=== PATIENT | male | born 1945 | race Caucasian/White ===

== ENCOUNTER → 2016-06-21 | Outpatient (CLI) | payer MEDICARE, BC ==
[~2016-06-21] MED LIST: ATOR20TA65 PO; ATOR40TA21 PO; BISA5TAB6 PO; BISOPROLOL PO; FINA5TAB4 PO; FLUO20CA22 PO; GABA300C16 PO; INDO50SU RC; LISI-327 PO; LISI1TAB8 PO; LISI20TA11 PO; LORA-401 PO; METO100T PO; OMEP20CA16 PO; OXYC-209 PO; PANT40TA4 PO; PERCOCET; TERA10CA42 PO; TERA2CAP3 PO; ZOLP10TA PO
--- NOTE | 2016-06-21 11:16 | RADRPT ---
PROCEDURE: XR AP pelvis and Hip. CLINICAL INDICATION: 71-year-old male with hip pain. TECHNIQUE: AP and frog lateral views of the left hip were performed. COMPARISON: No. FINDINGS: A total left hip arthroplasty is in place. The components are anatomically aligned. There is a bon e on bone appearance between the right femoral head and right acetabulum. The SI joints are normal. There is narrowing of the disk space at the lumbosacral junction. IMPRESSION: 1. Osteoarthritis of the right hip. 2. Status post total left hip arthroplasty. 3. Osteoarthritis at the lumbosacral junction. RPTAT:AAJJ Physician Juju Date Time Electronically viewed and signed by Johan Brown Physician on 06/21/2016 11:15 /
== END | disposition home or self-care (01) ==
LOC: UNMERGE 10:17 → MERGE 10:17 → HKI 10:17
PROVIDERS: ATTEND Orthopaedic Surgery
DX: Z01.818 Encounter for other preprocedural examination (principal); M16.11 Unilateral primary osteoarthritis, right hip; M25.551 Pain in right hip; Z96.642 Presence of left artificial hip joint
CPT/HCPCS: 73502; G0463

== ENCOUNTER 2016-06-29 07:37 | Inpatient (IN) | payer MEDICARE, BC ==
[2016-06-22 15:05] VITALS: BMI 33.5
[2016-06-29] VITALS (27 sets, daily range): BP systolic 137–185; BP diastolic 50–87; PULSE 56–75; RESP 5–30; Ht 185.4 cm; Wt 115.2 kg
[~2016-06-29] VITALS: Ht 185.4 cm; Wt 115.2 kg
[~2016-06-29 07:37] MED LIST changes: -ATOR40TA21 PO; -BISA5TAB6 PO; -FLUO20CA22 PO; -GABA300C16 PO; -LISI-327 PO; -LISI1TAB8 PO; -METO100T PO; -OMEP20CA16 PO; -OXYC-209 PO; -TERA10CA42 PO; -ZOLP10TA PO
[2016-06-29] MEDS ORDERED: BISA5TAB6 PO (08:17)
[2016-06-29] MEDS ORDERED: ROCURONIUM 50 MG INJ ONE (08:19)
[2016-06-29] MEDS ORDERED: PROPOFOL 100 ML ONE (08:19)
[2016-06-29] MEDS ORDERED: MIDAZOLAM 1 MG/ML 2 ML INJ ONE (08:19)
[2016-06-29] MEDS ORDERED: CEFAZOLIN 1 GM INJ ONE (08:19)
[2016-06-29] MEDS ORDERED: NEOSTIGMINE 3 MG/3 ML SYRINGE ONE (08:19)
[2016-06-29] MEDS ORDERED: GLYCOPYRROLATE 1 MG INJ ONE (08:19)
[2016-06-29] MEDS ORDERED: LIDOCAINE 100 MG SYRINGE ONE (08:19)
[2016-06-29] MEDS ORDERED: DEXAMETHASONE 4 MG/ML 1 ML INJ ONE (08:19)
[2016-06-29] MEDS ORDERED: ONDANSETRON 4 MG INJ ONE (08:19)
[2016-06-29] MEDS ORDERED: ETOMIDATE 20 MG INJ ONE (08:19)
[2016-06-29] MEDS ORDERED: FENTAnyl 50 MCG/ML VIAL ONE (08:19)
[2016-06-29] MEDS ORDERED: TERA10CA42 PO (08:19)
[2016-06-29] MEDS ORDERED: LISI1TAB8 PO (08:20)
[2016-06-29] MEDS ORDERED: OXYC-209 PO (08:21)
[2016-06-29] MEDS ORDERED: CELECOXIB 400 MG PO X1 DOSE PO ONE (08:30)
[2016-06-29] MEDS ORDERED: oxyCODONE (CR) 10 MG TAB [oxyCONTIN] X1 DOSE PO ONE (08:30)
[2016-06-29] MEDS ORDERED: PREGABALIN 300 MG PO X1 PO ONE (08:30)
[2016-06-29] MEDS ORDERED: LACTATED RINGER'S 1,000 ML IV SCH (08:30)
[2016-06-29] MEDS ORDERED: CEFAZOLIN 2GM/50 ML (PMX) 50 ML X1 BEFORE INCISION IVPB ONE (08:30)
[2016-06-29] MEDS ORDERED: traMADOL 50 MG TAB X 1 DOSE PO ONE (08:30)
[2016-06-29] MEDS ORDERED: TRANEXAMIC ACID IV ONE (09:00)
[2016-06-29] MEDS ORDERED: SOD CHLORIDE 0.9% IV ONE (09:00)
[2016-06-29] MEDS ORDERED: EXPAREL NOTE (BUPIVICAINE LIPOSOMAL) XX SCH (10:00)
[2016-06-29] MEDS ORDERED: PAIN COCKTAIL-CEFUROXIME IRR ONE ×7 (10:00)
[2016-06-29] MEDS ORDERED: BUPIVACAINE LIPOSOME/PF 266 MG/20 ML VIAL INFIL ONE (10:00)
[2016-06-29] MEDS ORDERED: SOD CHLORIDE 0.9% IVPB ONE ×3 (10:00→19:30)
[2016-06-29] MEDS ORDERED: TRANEXAMIC ACID IVPB ONE ×3 (10:00→19:30)
--- NOTE | 2016-06-29 10:07 | HPN ---
Date/Time of Note Date/Time of Note DATE: 06/29/16 TIME: 10:06 Interval H&P Admission Note Pt. seen H&P reviewed: No system changes No change from H&P on 06/23/16 by EDITH Hinkle MD Jun 29, 2016 10:06
[2016-06-29] MEDS ORDERED: SODIUM CL BACTERIOSTATIC 30 ML INJ ONE (10:30)
[2016-06-29] MEDS ORDERED: POLYMYXIN B 500000 UNIT INJ ONE (10:30)
[2016-06-29] MEDS ORDERED: VANCOMYCIN 1 GM INJ ONE (10:31)
[2016-06-29] MEDS ORDERED: MEPERIDINE 25 MG INJ IV PRN (11:30)
[2016-06-29] MEDS ORDERED: TRIMETHOBENZAMIDE 100 MG/ML VIAL IM PRN (11:30)
[2016-06-29] MEDS ORDERED: hydrALAzine 20 MG INJ IV PRN (11:30)
[2016-06-29] MEDS ORDERED: ONDANSETRON 4 MG INJ IV PRN ×2 (11:30→13:30)
[2016-06-29] MEDS ORDERED: LABETALOL HCL 20MG INJ IV PRN (11:30)
[2016-06-29] MEDS ORDERED: HYDROmorphONE (0.2 MG/ML) 10ML SYG IV PRN ×2 (11:30)
[2016-06-29] MEDS ORDERED: DIPHENHYDRAMINE 50 MG INJ IV PRN (11:30)
[2016-06-29] MEDS ORDERED: FENTAnyl 50 MCG/ML VIAL IV PRN ×3 (11:30)
[2016-06-29] MEDS ORDERED: MIDAZOLAM 1 MG/ML 2 ML INJ IV PRN (11:30)
[2016-06-29] MEDS ORDERED: EPHEDrine SULFATE 50 MG/5 ML SYG IV PRN (11:30)
[2016-06-29] MEDS ORDERED: BACITRACIN 50000 UNITS INJ IRR ONE (11:37)
[2016-06-29] MEDS ORDERED: BACITRACIN/POLYMYXIN 28.35 GM OINT TOP ONE (13:01)
--- NOTE | 2016-06-29 13:27 | OPPN ---
Date/Time of Note Date/Time of Note DATE: 06/29/16 TIME: 13:25 Operative/Procedure Note Dictation # [id number] Pre-Operative Diagnosis Right Hip OA Post-Operative Diagnosis Same Procedure Right Anterior ANICETO Surgeon: EDITH LARIOS MD Orchid Worker: CIERA VITALE PA-C Anesthesiologist: Vaughn Nieto M.D. Findings Severe OA Blood Usage/Administration None Implants/Grafts Depuy ANICETO Estimated blood loss: other Drains Hemovac x 1 Specimens Femoral Head Complications: None Anesthesia type: spinal EDITH LARIOS MD Jun 29, 2016 13:27
[2016-06-29] MEDS ORDERED: oxyCODONE 5 MG TAB PO PRN (13:30)
[2016-06-29] MEDS ORDERED: BISACODYL 10 MG SUPP PR PRN (13:30)
[2016-06-29] MEDS ORDERED: PANTOPRAZOLE (EC) 40 MG TAB PO SCH (13:30)
[2016-06-29] MEDS ORDERED: HYDROmorphONE 1 MG/ML SYG IV PRN (13:30)
[2016-06-29] MEDS ORDERED: DIPHENHYDRAMINE 25 MG CAP PO PRN (13:30)
[2016-06-29] MEDS ORDERED: MAGNESIUM HYDROXIDE 30ML CUP PO PRN (13:30)
[2016-06-29] MEDS ORDERED: ASPIRIN (EC) 325 MG TAB PO ONE ×2 (13:30→13:40)
[2016-06-29] MEDS ORDERED: NA PHOSPHATE/BIPHOS 133 ML ENEMA PR PRN (13:30)
[2016-06-29] MEDS ORDERED: NACL 0.9% 3 ML SYG IV SCH (13:30)
[2016-06-29] MEDS ORDERED: BISACODYL (EC) 5 MG TAB PO PRN (13:30)
--- NOTE | 2016-06-29 13:32 | PN ---
Date/Time of Note Date/Time of Note DATE: 06/29/16 TIME: 13:27 Assessment/Plan Lines/Catheters IV Catheter Type (from Nrsg): Peripheral IV Assessment/Plan Assessment/Plan Stable in PACU, s/p right anterior ANICETO -continue antibiotics -pain meds as needed -ASA/SCDs for DVT prophylaxis -Ativan 1mb BID given history of alcohol misuse (drinks 6 beers per day x 50 yrs) -OOB with PT -check AM labs -monitor drain -d/c oropeza in AM XR of the right hip is pending at this time Subjective 24 Hr Interval Summary Doing well in PACU. Denies pain. Moving surgical extremity. Exam/Review of Systems Vital Signs Vitals Vital Signs Date Time Temp Pulse Resp B/P Pulse Ox O2 Delivery O2 Flow Rate FiO2 06/29/16 09:03 97.9 58 16 185/79 97 Room Air Intake and Output 06/28/16 06/28/16 06/29/16 15:00 23:00 07:00 Intake Total 0 ml Balance 0 ml Exam Free Text/Dictation Hemovac: Dressing dry Incision clean, dry, and intact without redness or drainage 5/5 Quadriceps, Tibialis Anterior, EHL, Gastroc, Soleus, Peroneals Normal sensation Palpable DT/PT, CR <2 sec No distal edema CIERA VITALE PA-C Jun 29, 2016 13:32
[2016-06-29 13:40] LABS: HEMATOCRIT 32.2 % (42.0-52.0); HEMOGLOBIN 10.6 g/dl (14.0-18.0)
[2016-06-29] MEDS: HYDROmorphONE (0.2 MG/ML) 10ML SYG IV PRN ×2 (13:53→14:00)
--- NOTE | 2016-06-29 13:53 | OPR ---
DATE OF OPERATION: 06/29/2016 PREOPERATIVE DIAGNOSIS: Right hip osteoarthritis. POSTOPERATIVE DIAGNOSIS: Right hip osteoarthritis. OPERATION PERFORMED: Right anterior total hip arthroplasty. SURGEON: Edith Alcantara MD CLOTHES IRONER: SHARIF Velasquez COMPONENTS USED: DePuy size 54 mm Gription Roseau cup: 54/36 neutral Altrx polyethylene liner, size 9 standard Actis stem, 36+5 ceramic head. ANESTHESIA: Spinal plus general endotracheal intubation plus periarticular injection. ANESTHESIOLOGIST: Dr. Nieto ESTIMATED BLOOD LOSS: 300 mL. INTRAVENOUS FLUIDS: Crystalloid 2 L. SPECIMENS: Femoral head. DRAINS: Hemovac x1. COMPLICATIONS: None. DISPOSITION: The patient tolerated the procedure well and was taken to the recovery room in stable condition. INDICATIONS: The patient is a 71-year-old gentleman who has had progressive worsening pain in the right hip with radiographic evidence of severe osteoarthritis. He has failed nonsurgical means of treatment to control his pain including activity modifications, pain medications, and ambulatory assist devices. Despite these measures, he has had worsening pain, and I felt he would benefit from a total hip arthroplasty through an anterior approach. I felt the patient would benefit from a total hip arthroplasty through an anterior approach. The risks, benefits, and alternatives of the procedure were explained in detail to the patient. I explained the risks of the surgery to include, but not be limited to: bleeding and possible need for blood transfusion; infection; pain; stiffness; neurovascular injury with possible numbness, weakness, and/or paralysis anywhere from the hip down to the toes; fracture; instability; dislocation; leg length inequality; wear and/or loosening of the prosthesis and possible need for future revision; blood clots; pulmonary embolism; and anesthetic complications such as heart attack, stroke, GI bleed, pneumonia, and/ or . Ample time was allowed for the patient to ask questions, all of which were addressed and answered. The patient understood the risks involved and wished to proceed. Informed consent was signed prior to the procedure. PROCEDURE: The patient's right hip was initialed with a marking pen in the preoperative area to identify the correct operative site. The patient was brought to the operating room and transferred from the [facility] to the [facility] where a spinal anesthetic was administered. The patient was then anesthetized and intubated. A Bell catheter was placed. Both feet were placed into well-padded boots which were then placed into the leg holders of the traction booms. A timeout was performed to confirm that the right side was the correct operative site. The patient was given 2 g of intravenous Ancef within one hour prior to the procedure. The operative hip was prepped and draped in the usual sterile fashion. A 10 cm oblique incision was made over the anterior aspect of the hip and carried down through subcutaneous tissue and fat with sharp dissection. The tensor fascia cony was incised along the length of the wound. The tensor fascia muscle was retracted laterally and the sartorius medially. The anterior circumflex vessels were identified and tied off with 2-0 silk suture and coagulated with the Tissue Link nurse navigator. The rectus femoris was elevated off the anterior capsule and an anterior capsulectomy performed. A femoral neck osteotomy was made and the head removed from the acetabulum. The acetabulum was denuded of cartilage circumferentially, as was the femoral head. Retractors were placed around the acetabulum. The remnants of the labrum and ligamentum teres were excised. I reamed the acetabulum to the medial wall and then went into an anatomic position and increased the reamer size in 2 mm increments until I got a good bite and was down to bleeding subchondral bone. The Roseau cup was opened and impacted into the acetabulum and sat flush circumferentially, getting a good bite. C-arm imaging showed it had about 40 to 45 degrees of abduction and 20 degrees of anteversion. The real liner was opened and impacted into the acetabulum and sat flush circumferentially. Attention was turned towards the femur. The operative leg was carefully lowered to the floor with the leg adducted. The foot was then externally rotated to approximately 110 degrees. A posteromedial release was performed to optimize exposure. The femoral hook was placed underneath the proximal femur and the hydraulic lift was then used to elevate the femur up out of the wound. The cookie cutter osteotome was used to remove the remaining overhanging greater trochanter. The femur was then broached, going up in one size increments until it sat flush with the neck cut and a stable fit was achieved. The trial neck and head were assembled and reduced into the acetabulum. Fluoroscopic imaging showed the components to be in good position and the leg lengths and offsets to be equal. At this point, the trial was dislocated and the trial broach removed. The canal was irrigated and dried. The real stem was opened and impacted into the femur. The trunnion was irrigated and dried, and the real femoral head was impacted onto the trunnion, and reduced into the acetabulum. The soft tissues were infiltrated with a mixture of 150 mg of 0.5% Bupivacaine, 8 mg of Duramorph, 300 mcg of epinephrine, 30 mg of Toradol, 100 mcg of clonidine, 750 mg of cefuroxime and 86 mL of normal saline, followed by an injection of 266 mg of liposomal Bupivacaine. At this point the hip was irrigated with a mixture of betadine/saline and then antibiotic saline with pulsatile lavage. A Hemovac drain was placed in the deep portion of the wound and brought out the anterolateral thigh. There was good hemostasis. The tensor fascia cony was repaired with a running #1 Vicryl. The deep fat layer was irrigated and closed with 2-0 Stratafix and the subcutaneous layer closed with 3 -0 Vicryl and the skin was closed with pito. The drain was secured with 3-0 nylon. The sponge and needle counts were correct at the end of the case. The wound was covered with an occlusive dressing. The patient was awakened, extubated, and taken to the recovery room in stable condition. Dictated By: EDITH VERA/ES Conf#: [id number] DID#: [id number] MTDDanika
[2016-06-29] MEDS: CEFAZOLIN 2 GM/50 ML (PMX) 50 ML IVPB SCH ×2 (14:00→21:29)
[2016-06-29 14:05] LABS: CALCIUM 8.5 mg/dl (8.4-10.2); CREATININE 0.7 mg/dl (0.61-1.24); POTASSIUM 4.9 mmol/L (3.5-5.1)
[2016-06-29] MEDS ORDERED: BACITRACIN 50000 UNITS INJ ONE (15:12)
[2016-06-29] MEDS: LACTATED RINGER'S 1,000 ML IV SCH ×2 (16:05→21:19)
[2016-06-29] MEDS ORDERED: HYDROCHLOROTHIAZIDE 25 MG TAB PO SCH ×2 (16:30)
--- NOTE | 2016-06-29 17:28 | CONS ---
DATE OF ADMISSION: 06/29/2016 DATE OF CONSULTATION: 06/29/2016 TYPE OF CONSULTATION: Postoperative medical. Dr. Alcantara, Thank you very much for allowing me to evaluate this 71-year-old male who just underwent right total hip arthroplasty. HISTORICAL EVENTS: As you well know, this patient has had progressive disabling pain involving his right hip and for this elected to proceed with surgery. Postoperatively, he is comfortable with min imal discomfort, the absence of cough, wheezing, shortness of breath, nausea, vomiting, abdominal or chest pain. PAST MEDICAL HISTORY: Includes 1. Hypertension. 2. Benign prostatic hypertrophy. 3. Anxiety. 4. 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 5. Modest alcohol intake, chronic. 6. Hypertension. 7. Chronic lumbar radiculopathy. 8. History of gastroesophageal reflux disease. MEDICATIONS PRIOR TO ADMISSION: 1. Percocet 10/325 q.i.d. p.r.n. 2. Protonix 40 mg per day. 3. Bisoprolol 10 mg per day. 4. Terazosin 10 mg per day. 5. Lisinopril/hydrochlorothiazide 20/25 mg per day. 6. Fluoxetine 10 mg per day. 7. Lorazepam 1 mg ____ p.r.n. 8. Indomethacin p.r.n. 9. Finasteride 5 mg per day. ALLERGIES: INCLUDE 1. AMLODIPINE. 2. TRAMADOL. PHYSICAL EXAMINATION: GENERAL: [place] male. No acute distress. VITAL SIGNS: BP 122/80, pulse 70, respirations 20, he was afebrile. EYES: Extraocular muscles were full. NOSE, MOUTH AND THROAT: Normal. NECK: Supple. There was no jugular venous distention, thyroid enlargement, adenopathy. Carotids 2 +, no bruits. LUNGS: Clear. HEART: Rhythm regular. No murmur. ABDOMEN: Nontender. Liver and spleen were not palpable. EXTREMITIES: No edema, no calf tenderness. IMPRESSION: 1. Stable postoperatively, left hip replacement. 2. History of hypertension. Medications to be resumed and BP observed. 3. Will follow daily for signs and symptoms of thromboembolic disease despite appropriate deep veno us thrombosis prophylaxis. Dictated By: MARYBEL RAYMUNDO/ES Conf#: [id number] DID#: [id number]
[2016-06-29] MEDS: LISINOPRIL 20 MG TAB PO SCH (17:32)
[2016-06-29] MEDS: traMADol 50 MG TAB PO SCH ×2 (17:35→23:46)
[2016-06-29] MEDS: PANTOPRAZOLE (EC) 40 MG TAB PO SCH (17:35)
[2016-06-29] MEDS ORDERED: CEFAZOLIN 2 GM/50 ML (PMX) 50 ML IVPB SCH (18:00)
[2016-06-29] MEDS: PREGABALIN 25 MG CAP PO SCH (20:09)
[2016-06-29] MEDS: DOCUSATE SODIUM 100 MG CAP PO SCH (20:09)
[2016-06-29] MEDS: ATORVASTATIN 20 MG TAB PO SCH (20:09)
[2016-06-29] MEDS: TERAZOSIN 5 MG CAP PO SCH (20:10)
[2016-06-29] MEDS ORDERED: TERAZOSIN 5 MG CAP PO SCH (21:00)
[2016-06-29] MEDS ORDERED: LORAZEPAM 1 MG TAB PO SCH (21:00)
[2016-06-29] MEDS: LORAZEPAM 1 MG TAB PO PRN (21:38)
[2016-06-29] MEDS: CEPASTAT LOZENGE MT PRN (23:46)
[2016-06-30 00:10] VITALS: BP 162/72; RESP 18
--- NOTE | 2016-06-30 00:44 | RADRPT ---
PROCEDURE: Fluoroscopy services. CLINICAL INDICATION: Right hip pain. TECHNIQUE: Fluoroscopy services during right hip arthroplasty. COMPARISON: 02/29/2012. FINDINGS: Fluoroscopy services during right hip arthroplasty. 15 intraoperative spot films were obtained at in termediate stages during this procedure and demonstrate localization, instrumentation and placement of right hip arthroplasty. 0.5 minutes of fluoroscopy time were employed during this procedure. IMPRESSION: Fluoroscopy services during right hip arthroplasty. RPTAT: UU Physician Tarsha Date Time Electronically viewed and signed by Physician Tarsha on 06/30/2016 00:43 RS/
--- NOTE | 2016-06-30 00:47 | RADRPT ---
PROCEDURE: XR Right Hip. CLINICAL INDICATION: Placement of right hip arthroplasty, now for postoperative film. TECHNIQUE: Single AP view of the right hip COMPARISON: Fluoroscopy services during placement of right hip arthroplasty dated today, earlier i n the day. FINDINGS: New right hip arthroplasty. No evident hardware complication. There is normal mineralization and alignment. No fracture or osseous lesion is identified. There are no significant degenerative changes in the hip. The soft tissues are unremarkable. Post surgical drain in place. IMPRESSION: No evident hardware complication or acute fracture. RPTAT: UU Physician Tarsha Date Time Electronically viewed and signed by Physician Tarsha on 06/30/2016 00:46 RS/
--- NOTE | 2016-06-30 00:53 | RADRPT ---
PROCEDURE: Pelvis x-ray CLINICAL INDICATION: Postoperative for placement of right hip. TECHNIQUE: Single AP view of the pelvis performed. COMPARISON: Fluoroscopy services during placement of right hip dated today, earlier in the day. FINDINGS: Right hip arthroplasty without evident hardware complication. Post surgical drain in place. Normal mineralization, architecture and alignment. No fracture or osseous lesion identified. There are no significant degenerative changes. Unremarkable soft tissues. IMPRESSION: No evident hardware complication or acute fracture. RPTAT: UU Physician Tarsha Date Time Electronically viewed and signed by Physician Tarsha on 06/30/2016 00:53 RS/
[2016-06-30 05:13] VITALS: BP 137/65; PULSE 64; RESP 18
[2016-06-30 05:14] LABS: HEMATOCRIT 30.5 % (42.0-52.0); HEMOGLOBIN 10.2 g/dl (14.0-18.0)
[2016-06-30 05:18] LABS: POTASSIUM 4.2 mmol/L (3.5-5.1)
[2016-06-30 05:19] LABS: MAGNESIUM 1.6 mg/dl (1.7-2.5); PHOSPHORUS 3.9 mg/dl (2.5-4.9)
[2016-06-30 05:21] LABS: CALCIUM 8.8 mg/dl (8.4-10.2); CREATININE 0.64 mg/dl (0.61-1.24)
[2016-06-30] MEDS: CEFAZOLIN 2 GM/50 ML (PMX) 50 ML IVPB SCH (06:00)
[2016-06-30] MEDS: LACTATED RINGER'S 1,000 ML IV SCH ×3 (06:01→21:19)
[2016-06-30] MEDS: PANTOPRAZOLE (EC) 40 MG TAB PO SCH ×2 (06:06→18:39)
[2016-06-30] MEDS: traMADol 50 MG TAB PO SCH ×3 (06:06→18:38)
[2016-06-30 06:25] LABS: ADD UMIC YES; URINE BILIRUBIN (Dip) NEGATIVE (NEGATIVE); URINE BLOOD (Dip) 1+ (NEGATIVE); URINE COLOR LT. YELLOW (YELLOW); URINE GLUCOSE (Dip) NEGATIVE (NEGATIVE); URINE KETONES (Dip) NEGATIVE (NEGATIVE); URINE LEUKOCYTE ESTERASE (Dip) NEGATIVE (NEGATIVE); URINE NITRITE (Dip) NEGATIVE (NEGATIVE); URINE TOTAL PROTEIN (Dip) NEGATIVE (NEGATIVE); URINE UROBILINOGEN (Dip) 0.2 E.U./dL (0.1-1.0)
[2016-06-30 08:20] VITALS: BP 121/54; RESP 20
[2016-06-30] MEDS ORDERED: CALCIUM CARBONATE 500 MG CHEW TAB PO PRN (08:30)
--- NOTE | 2016-06-30 08:37 | CONS ---
Date/Time of Note Date/Time of Note DATE: 06/30/16 TIME: 08:32 Assessment/Plan Assessment/Plan Additional Assessment/Plan 1. Status post right hip arthroplasty, stable. 2. History of coronary artery disease, presently asymptomatic 3 . Hypertension, now controlled, needed Catapres last night for control 4. Chest pain sec to acid-indigestion, tums ordered, received protonix already 5. Low mag, will replete Consultation Date/Type/Reason Admit Date/Time Jun 29, 2016 at 07:37 Initial Consult Date Detailed Summary Respiratory: No cough Cardiovascular: chest pain (midsternal without radiation and no inc with activity "typical" if his usual indigesetion) Gastrointestinal: flatus, No nausea Genitourinary: other (oropeza in place) Exam/Review of Systems Vital Signs Vitals Vital Signs Date Time Temp Pulse Resp B/P Pulse Ox O2 Delivery O2 Flow Rate FiO2 06/30/16 08:20 97.4 58 20 121/54 98 06/29/16 16:30 Room Air Intake and Output 06/29/16 06/29/16 06/30/16 15:00 23:00 07:00 Intake Total 3711.5 ml 530 ml 1700 ml Output Total 750 ml 2160 ml 2540 ml Balance 2961.5 ml -1630 ml -840 ml Exam Neck: No jvd Respiratory: clear to auscultation Cardiovascular: regular rate and rhythm Gastrointestinal: soft, No tender Extremities: No edema (and no calf tend) Results Result Diagram: 06/30/16 0425 06/30/16 0425 Results 24 hrs Laboratory Tests Test 06/29/16 13:30 06/30/16 04:25 06/30/16 05:00 Anion Gap 12 13 Blood Urea Nitrogen 10 9 Calcium Level 8.5 8.8 Carbon Dioxide Level 25 27 Chloride Level 105 101 Creatinine 0.70 0.64 Glucose Level 128 124 Hematocrit 32.2 L 30.5 L Hemoglobin 10.6 L 10.2 L Potassium Level 4.9 4.2 Sodium Level 137 137 Magnesium Level 1.6 L Phosphorus Level 3.9 Urine Bilirubin NEGATIVE Urine Clarity CLEAR Urine Color LT. YELLOW Urine Glucose NEGATIVE Urine Hemoglobin 1+ H Urine Ketones NEGATIVE Urine Leukocyte Esterase NEGATIVE Urine Microscopic RBC 10-25 Urine Microscopic WBC 0-2 Urine Nitrite NEGATIVE Urine Specific [place] 1.015 Urine Total Protein NEGATIVE Urine Urobilinogen 0.2 E.U./dL Urine pH 6.5 Medications Medications Current Medications Miscellaneous Information 1 ea NOTE XX ; Start 06/29/16 at 10:00; Stop 07/02/16 at 09:59 Atorvastatin Calcium (Lipitor) 20 mg QHS PO Last administered on 06/29/16 20:09 ; Admin Dose 20 MG; Start 06/29/16 at 21:00 Bisacodyl (Dulcolax) 10 mg DAILY PRN PO CONSTIPATION; Start 06/29/16 at 13:30 Finasteride (Proscar) 5 mg DAILY PO ; Start 06/30/16 at 09:00 Terazosin HCl 10 mg 10 mg HS PO Last administered on 06/29/16 20:10; Admin Dose 10 MG; Start 06/29/16 at 21:00 Lactated Ringer's (Lr) 1,000 ml @ 125 mls/hr Q8H IV Last administered on 06:01; Admin Dose 125 MLS/HR; Start 06/29/16 at 13:19 Celecoxib (Celebrex) 200 mg DAILY PO ; Start 06/30/16 at 09:00 Tramadol HCl (Ultram) 50 mg Q6 PO Last administered on 06/30/16 06:06; Admin Dose 50 MG; Start 06/29/16 at 18:00; Stop 07/02/16 at 17:59 Oxycodone HCl (Roxicodone) 5 mg Q4H PRN PO PAIN LEVEL 1-3; Start 06/29/16 at 13: 30 Oxycodone HCl (Roxicodone) 10 mg Q4H PRN PO PAIN LEVEL 4-7; Start 06/29/16 at 13 :30 Hydromorphone HCl (Dilaudid) 1 mg Q3H PRN IV PAIN LEVEL 8-10; Start 06/29/16 at 13:30 Ondansetron HCl (Zofran Inj) 4 mg Q6H PRN IV NAUSEA AND/OR VOMITING; Start 06/29 at 13:30 Bisacodyl (Dulcolax Supp) 10 mg Q12H PRN ID CONSTIPATION; Start 06/29/16 at 13: 30 Magnesium Hydroxide (Milk Of Mag) 30 ml BID PRN PO CONSTIPATION; Start 06/29/16 at 13:30 Sodium Biphosphate/ Sodium Phosphate (Fleet Enema) 133 ml DAILY PRN ID CONSTIPATION; Start 06/29/16 at 13:30 Docusate Sodium (Colace) 100 mg BID PO Last administered on 06/29/16 20:09; Admin Dose 100 MG; Start 06/29/16 at 21:00 Diphenhydramine HCl (Benadryl) 25 mg Q6H PRN PO PRURITUS; Start 06/29/16 at 13: 30 Aspirin (Ecotrin) 325 mg BID PO ; Start 06/30/16 at 09:00 Pregabalin (Lyrica) 50 mg BID PO Last administered on 06/29/16 20:09; Admin Dose 50 MG; Start 06/29/16 at 21:00 Pantoprazole (Protonix Tab) 40 mg BID@06,18 PO Last administered on 06/30/16 06 :06; Admin Dose 40 MG; Start 06/29/16 at 18:00 Lorazepam (Ativan) 1 mg BID PRN PO ANXIETY Last administered on 06/29/16 21:38 ; Admin Dose 1 MG; Start 06/29/16 at 21:00 Lisinopril (Zestril) 20 mg DAILY PO Last administered on 06/29/16 17:32; Admin Dose 20 MG; Start 06/29/16 at 16:29 Clonidine (Catapres) 0.1 mg Q6H PO Last administered on 06/30/16 06:07; Admin Dose 0.1 MG; Start 06/29/16 at 18:30 Phenol (Cepastat Lozenge) 1 lozenge Q1H PRN MT SORE THROAT Last administered on 06/29/16 23:46; Admin Dose 1 LOZENGE; Start 06/29/16 at 22:00 Calcium Carbonate 1000 mg 1,000 mg QID PRN PO DISTENSION/GAS/BLOATING; Start at 08:30; Status UNV Magnesium Sulfate/ Sodium Chloride (Magnesium Sulfate/NS) 106 ml @ 35.333 mls/ hr ONCE ONCE IVPB ; Start 06/30/16 at 08:30; Stop 06/30/16 at 11:29; Status UNV MARYBEL GARDNER MD Jun 30, 2016 08:37
--- NOTE | 2016-06-30 08:48 | PN ---
Date/Time of Note Date/Time of Note DATE: 06/30/16 TIME: 08:46 Assessment/Plan Lines/Catheters IV Catheter Type (from Nrsg): Peripheral IV Bell in Place (from Nrsg): Yes Assessment/Plan Assessment/Plan Stable POD #1, s/p right anterior ANICETO -d/c abx -pain meds as needed -ASA/SCDs for DVT prophylaxis -cont ativan 1mg BID for h/o alcohol misuse -OOB with PT -drain removed -check AM labs -d/c planning. Possible d/c home tomorrow Subjective 24 Hr Interval Summary Doing well. No acute overnight events. Denies significant pain. VSS, afebrile. Exam/Review of Systems Vital Signs Vitals Vital Signs Date Time Temp Pulse Resp B/P Pulse Ox O2 Delivery O2 Flow Rate FiO2 06/30/16 08:20 97.4 58 20 121/54 98 06/29/16 16:30 Room Air Intake and Output 06/29/16 06/29/16 06/30/16 15:00 23:00 07:00 Intake Total 3711.5 ml 530 ml 1700 ml Output Total 750 ml 2160 ml 2540 ml Balance 2961.5 ml -1630 ml -840 ml Exam Free Text/Dictation Hemovac:300cc Dressing dry Incision clean, dry, and intact without redness or drainage 5/5 Quadriceps, Tibialis Anterior, EHL, Gastroc, Soleus, Peroneals Normal sensation Palpable DT/PT, CR <2 sec No distal edema Results Result Diagram: 06/30/16 0425 06/30/16 0425 CIERA VITALE PA-C Jun 30, 2016 08:48
[2016-06-30] MEDS: DOCUSATE SODIUM 100 MG CAP PO SCH ×2 (08:54→20:31)
[2016-06-30] MEDS: FINASTERIDE 5 MG TAB PO SCH (08:55)
[2016-06-30] MEDS: CELECOXIB 200 MG CAP PO SCH (08:55)
[2016-06-30] MEDS: ASPIRIN (EC) 325 MG TAB PO SCH ×2 (08:55→20:31)
[2016-06-30] MEDS: PREGABALIN 25 MG CAP PO SCH ×2 (08:55→20:31)
[2016-06-30] MEDS: LISINOPRIL 20 MG TAB PO SCH (08:56)
[2016-06-30] MEDS ORDERED: HYDROCHLOROTHIAZIDE 25 MG TAB PO SCH (09:00)
[2016-06-30] MEDS ORDERED: LISINOPRIL 20 MG TAB PO SCH (09:00)
[2016-06-30] MEDS ORDERED: NON-FORMULARY/PATIENT OWN MED (Lisinopril/Hydrochlorothiazide (Lisinopril-Hctz 20-25 mg Ta PO SCH (09:00)
[2016-06-30] MEDS ORDERED: MAGNESIUM SULFATE 3 GM in SOD CHLORIDE 0.9% 100 ML IVPB SCH (10:00)
[2016-06-30] MEDS: oxyCODONE 5 MG TAB PO PRN ×3 (10:01→22:35)
[2016-06-30] MEDS: CEPASTAT LOZENGE MT PRN ×2 (11:42→20:32)
[2016-06-30 20:20] VITALS: BP 128/61; PULSE 60; RESP 18
[2016-06-30] MEDS: TERAZOSIN 5 MG CAP PO SCH (20:31)
[2016-06-30] MEDS: ATORVASTATIN 20 MG TAB PO SCH (20:32)
[2016-06-30] MEDS: LORAZEPAM 1 MG TAB PO PRN (22:14)
[2016-07-01] MEDS: traMADol 50 MG TAB PO SCH ×4 (00:10→17:49)
[2016-07-01] MEDS: PANTOPRAZOLE (EC) 40 MG TAB PO SCH ×2 (05:09→17:48)
[2016-07-01] MEDS: oxyCODONE 5 MG TAB PO PRN ×4 (05:09→20:39)
[2016-07-01] MEDS: LACTATED RINGER'S 1,000 ML IV SCH ×3 (05:19→21:19)
[2016-07-01 07:40] VITALS: BP 140/61; RESP 18
[2016-07-01] MEDS: CELECOXIB 200 MG CAP PO SCH (08:36)
[2016-07-01] MEDS: DOCUSATE SODIUM 100 MG CAP PO SCH ×2 (08:36→21:00)
[2016-07-01] MEDS: FINASTERIDE 5 MG TAB PO SCH (08:36)
[2016-07-01] MEDS: PREGABALIN 25 MG CAP PO SCH ×2 (08:36→20:32)
[2016-07-01] MEDS: ASPIRIN (EC) 325 MG TAB PO SCH ×2 (08:36→20:31)
[2016-07-01] MEDS: LISINOPRIL 20 MG TAB PO SCH (08:38)
--- NOTE | 2016-07-01 10:56 | PN ---
Date/Time of Note Date/Time of Note DATE: 07/01/16 TIME: 10:55 Assessment/Plan Lines/Catheters IV Catheter Type (from Nrsg): Saline Lock Bell in Place (from Nrsg): Yes Assessment/Plan Assessment/Plan Stable POD #2, s/p right anterior ANICETO -pain meds as needed -ASA/SCDs for DVT prophylaxis -OOB with PT -dressing changed -check AM labs -plan to d/c home tomorrow Subjective 24 Hr Interval Summary Doing well. No acute overnight events. Mild pain after PT but otherwise denies pain. VSS, afebrile. Would like to go home tomorrow. Exam/Review of Systems Vital Signs Vitals Vital Signs Date Time Temp Pulse Resp B/P Pulse Ox O2 Delivery O2 Flow Rate FiO2 07/01/16 07:40 98.0 65 18 140/61 96 06/29/16 16:30 Room Air Intake and Output 06/30/16 06/30/16 07/01/16 15:00 23:00 07:00 Intake Total 106 ml 600 ml 550 ml Output Total 1200 ml Balance 106 ml 600 ml -650 ml Exam Free Text/Dictation Dressing dry Incision clean, dry, and intact without redness or drainage 5/5 Quadriceps, Tibialis Anterior, EHL, Gastroc, Soleus, Peroneals Normal sensation Palpable DT/PT, CR <2 sec No distal edema Results Result Diagram: 06/30/16 0425 06/30/16 0425 CIERA VITALE PA-C Jul 01, 2016 10:56
[2016-07-01 11:40] LABS: HEMATOCRIT 32.4 % (42.0-52.0); HEMOGLOBIN 10.5 g/dl (14.0-18.0)
--- NOTE | 2016-07-01 11:46 | CONS ---
Date/Time of Note Date/Time of Note DATE: 07/01/16 TIME: 11:43 Assessment/Plan Assessment/Plan Additional Assessment/Plan 1. Doing well post op right hip replacement. 2. GERD, controlled 3. BP acceptable 4. Labs pending Consultation Date/Type/Reason Admit Date/Time Jun 29, 2016 at 07:37 Detailed Summary Respiratory: No cough, No shortness of breath Cardiovascular: chest pain, No orthopenea, No palpitations Gastrointestinal: other (mild epig and substernal discomfort relieved with tums. doesnt inc with exertion and does not radiate) Genitourinary: no complaints Musculoskeletal: bone/joint pain (midl right hip pain) Exam/Review of Systems Vital Signs Vitals Vital Signs Date Time Temp Pulse Resp B/P Pulse Ox O2 Delivery O2 Flow Rate FiO2 07/01/16 07:40 98.0 65 18 140/61 96 06/29/16 16:30 Room Air Intake and Output 06/30/16 06/30/16 07/01/16 15:00 23:00 07:00 Intake Total 106 ml 600 ml 550 ml Output Total 1200 ml Balance 106 ml 600 ml -650 ml Exam Neck: No jvd Respiratory: clear to auscultation Cardiovascular: regular rate and rhythm Gastrointestinal: soft, No hepatomegaly, No splenomegaly Extremities: No edema (and no calf tend) Results Result Diagram: 07/01/16 1129 06/30/16 0425 Results 24 hrs Laboratory Tests Test 07/01/16 11:29 Hematocrit 32.4 L Hemoglobin 10.5 L Medications Medications Current Medications Miscellaneous Information 1 ea NOTE XX ; Start 06/29/16 at 10:00; Stop 07/02/16 at 09:59 Atorvastatin Calcium (Lipitor) 20 mg QHS PO Last administered on 06/30/16 20:32 ; Admin Dose 20 MG; Start 06/29/16 at 21:00 Bisacodyl (Dulcolax) 10 mg DAILY PRN PO CONSTIPATION; Start 06/29/16 at 13:30 Finasteride (Proscar) 5 mg DAILY PO Last administered on 07/01/16 08:36; Admin Dose 5 MG; Start 06/30/16 at 09:00 Terazosin HCl 10 mg 10 mg HS PO Last administered on 06/30/16 20:31; Admin Dose 10 MG; Start 06/29/16 at 21:00 Lactated Ringer's (Lr) 1,000 ml @ 125 mls/hr Q8H IV Last administered on 06:01; Admin Dose 125 MLS/HR; Start 06/29/16 at 13:19 Celecoxib (Celebrex) 200 mg DAILY PO Last administered on 07/01/16 08:36; Admin Dose 200 MG; Start 06/30/16 at 09:00 Tramadol HCl (Ultram) 50 mg Q6 PO Last administered on 07/01/16 06:56; Admin Dose 50 MG; Start 06/29/16 at 18:00; Stop 07/02/16 at 17:59 Oxycodone HCl (Roxicodone) 5 mg Q4H PRN PO PAIN LEVEL 1-3; Start 06/29/16 at 13: 30 Oxycodone HCl (Roxicodone) 10 mg Q4H PRN PO PAIN LEVEL 4-7 Last administered on 07/01/16 08:57; Admin Dose 10 MG; Start 06/29/16 at 13:30 Hydromorphone HCl (Dilaudid) 1 mg Q3H PRN IV PAIN LEVEL 8-10 Last administered on 06/30/16 17:05; Admin Dose 1 MG; Start 06/29/16 at 13:30 Ondansetron HCl (Zofran Inj) 4 mg Q6H PRN IV NAUSEA AND/OR VOMITING; Start 06/29 at 13:30 Bisacodyl (Dulcolax Supp) 10 mg Q12H PRN [place] CONSTIPATION; Start 06/29/16 at 13: 30 Magnesium Hydroxide (Milk Of Mag) 30 ml BID PRN PO CONSTIPATION; Start 06/29/16 at 13:30 Sodium Biphosphate/ Sodium Phosphate (Fleet Enema) 133 ml DAILY PRN AR CONSTIPATION; Start 06/29/16 at 13:30 Docusate Sodium (Colace) 100 mg BID PO Last administered on 07/01/16 08:36; Admin Dose 100 MG; Start 06/29/16 at 21:00 Diphenhydramine HCl (Benadryl) 25 mg Q6H PRN PO PRURITUS; Start 06/29/16 at 13: 30 Aspirin (Ecotrin) 325 mg BID PO Last administered on 07/01/16 08:36; Admin Dose 325 MG; Start 06/30/16 at 09:00 Pregabalin (Lyrica) 50 mg BID PO Last administered on 07/01/16 08:36; Admin Dose 50 MG; Start 06/29/16 at 21:00 Pantoprazole (Protonix Tab) 40 mg BID@06,18 PO Last administered on 07/01/16 05 :09; Admin Dose 40 MG; Start 06/29/16 at 18:00 Lorazepam (Ativan) 1 mg BID PRN PO ANXIETY Last administered on 06/30/16 22:14 ; Admin Dose 1 MG; Start 06/29/16 at 21:00 Lisinopril (Zestril) 20 mg DAILY PO Last administered on 07/01/16 08:38; Admin Dose 20 MG; Start 06/29/16 at 16:29 Phenol (Cepastat Lozenge) 1 lozenge Q1H PRN MT SORE THROAT Last administered on 06/30/16 20:32; Admin Dose 1 LOZENGE; Start 06/29/16 at 22:00 Calcium Carbonate (Tums) 1,000 mg QID PRN PO DISTENSION/GAS/BLOATING Last administered on 06/30/16 08:55; Admin Dose 1,000 MG; Start 06/30/16 at 08:30 Clonidine (Catapres) 0.1 mg TID PO Last administered on 07/01/16 08:40; Admin Dose 0.1 MG; Start 06/30/16 at 09:00 MARYBEL GARDNER MD Jul 01, 2016 11:46
[2016-07-01 11:50] LABS: POTASSIUM 3.7 mmol/L (3.5-5.1)
[2016-07-01 11:52] LABS: CREATININE 0.85 mg/dl (0.61-1.24)
[2016-07-01 11:53] LABS: PHOSPHORUS 3.2 mg/dl (2.5-4.9)
[2016-07-01 11:53] LABS: CALCIUM 8.7 mg/dl (8.4-10.2)
[2016-07-01 11:54] LABS: MAGNESIUM 1.9 mg/dl (1.7-2.5)
[2016-07-01 12:32] VITALS: BP 153/69; PULSE 68; RESP 18
[2016-07-01 19:46] VITALS: BP 116/60; RESP 18
[2016-07-01] MEDS: ATORVASTATIN 20 MG TAB PO SCH (20:31)
[2016-07-01] MEDS: TERAZOSIN 5 MG CAP PO SCH (20:33)
[2016-07-01] MEDS: LORAZEPAM 1 MG TAB PO PRN (20:39)
[2016-07-01] MEDS: CEPASTAT LOZENGE MT PRN (20:43)
[2016-07-02] MEDS: traMADol 50 MG TAB PO SCH ×3 (00:32→12:19)
[2016-07-02] MEDS: oxyCODONE 5 MG TAB PO PRN ×2 (04:37→09:43)
[2016-07-02] MEDS: LACTATED RINGER'S 1,000 ML IV SCH (05:19)
[2016-07-02] MEDS: PANTOPRAZOLE (EC) 40 MG TAB PO SCH (06:46)
[2016-07-02 07:00] VITALS: BP 152/70; RESP 20
--- NOTE | 2016-07-02 07:21 | PDOCDIS ---
Discharge Instructions DIAGNOSIS Discharge Diagnosis: s/p right anterior ANICETO CONDITION Patient Condition: Good HOME CARE INSTRUCTIONS: Diet Instructions: RegularSpecial Diet: REGULAR ACTIVITY: Activity Restrictions: Slowly Increase Activity Rest between Activity Avoid heavy lifting Do not operate Machinery Do not operate Power Tool Avoid Heavy Housework Keep Limb Elevated Bathing Restrictions: Shower FOLLOW UP/APPOINTMENTS Appointments follow up in the office on 07/02/16 OTHER ORDERS: Other Orders: S/P Anterior ANICETO Physical Therapy: Three times per week at home x 2 weeks Daily in Rehab/SNF WB STATUS: WBAT Strengthening exercises for both upper and un-operated lower extremities. 1. Gait training with front wheeled walker 2. Wide base gait, no pivot turns. 3. Abductor strengthening. 4. Quadriceps and hamstring strengthening. 5. May switch to cane in contra lateral hand 6 weeks after surgery. 6. Physical Therapy can open case if nursing is not available. 7. Ice Packs while at rest to surgical wound for 20 minutes, 3 times/day. 8. Patient requires mobile SCDs to reduce risk of developing DVT following ANICETO. Patient will use the mobile SCDs for 30 days postoperatively. Hip Precautions: No posterior hip precautions. Bathing assistance by home health aide twice weekly if Medicare patient. Occupational Therapy: Evaluation for assistive devices and ADL training. Wound Care: Keep incision dry & covered with Tegaderm until first visit with Dr. Alcantara Anticoagulation Orders: Enteric Coated Aspirin 325 mg po bid x 6 weeks from date of surgery Follow-up:Call for an appointment with Dr. Alcantara in 1 week after discharged from hospital at DME Orders: HECTOR, 3-in-1 Commode, Mobile SCDs CIERA VITALE PA-C Jul 02, 2016 07:21
[2016-07-02] MEDS ORDERED: HYDR-906 PO (07:22)
[2016-07-02] MEDS ORDERED: TRAM50TA2 PO (07:22)
[2016-07-02] MEDS ORDERED: ASPI325T32 PO (07:22)
[2016-07-02 07:56] LABS: HEMATOCRIT 29.5 % (42.0-52.0); HEMOGLOBIN 9.7 g/dl (14.0-18.0)
[2016-07-02 08:06] LABS: POTASSIUM 4.1 mmol/L (3.5-5.1)
[2016-07-02 08:09] LABS: CALCIUM 8.4 mg/dl (8.4-10.2); CREATININE 0.75 mg/dl (0.61-1.24)
--- NOTE | 2016-07-02 08:26 | CONS ---
Date/Time of Note Date/Time of Note DATE: 07/02/16 TIME: 08:25 Assessment/Plan Assessment/Plan Additional Assessment/Plan 1. Doing very well post op left hip replacement. 2. GERD is quiescent. 3. Can dc if ok with ortho and PT Consultation Date/Type/Reason Admit Date/Time Jun 29, 2016 at 07:37 Detailed Summary Respiratory: No shortness of breath Cardiovascular: No chest pain Gastrointestinal: no complaints Genitourinary: no complaints Musculoskeletal: bone/joint pain (mild left hip pain) Exam/Review of Systems Vital Signs Vitals Vital Signs Date Time Temp Pulse Resp B/P Pulse Ox O2 Delivery O2 Flow Rate FiO2 07/02/16 07:00 99.2 76 20 152/70 95 07/01/16 12:32 Room Air Intake and Output 07/01/16 07/01/16 07/02/16 15:00 23:00 07:00 Intake Total 2260 ml 1050 ml Output Total 500 ml 850 ml Balance 1760 ml 200 ml Exam Neck: No jvd Respiratory: clear to auscultation Cardiovascular: regular rate and rhythm Gastrointestinal: soft Extremities: No edema (and no calf tend) Results Result Diagram: 07/02/16 0708 07/01/16 1124 Results 24 hrs Laboratory Tests Test 07/01/16 11:24 07/01/16 11:29 07/02/16 07:08 Anion Gap 13 Blood Urea Nitrogen 11 Calcium Level 8.7 Carbon Dioxide Level 30 Chloride Level 100 Creatinine 0.85 Glucose Level 101 Potassium Level 3.7 Sodium Level 139 Hematocrit 32.4 L 29.5 L Hemoglobin 10.5 L 9.7 L Magnesium Level 1.9 Phosphorus Level 3.2 Medications Medications Current Medications Miscellaneous Information 1 ea NOTE XX ; Start 06/29/16 at 10:00; Stop 07/02/16 at 09:59 Atorvastatin Calcium (Lipitor) 20 mg QHS PO Last administered on 07/01/16 20:31 ; Admin Dose 20 MG; Start 06/29/16 at 21:00 Bisacodyl (Dulcolax) 10 mg DAILY PRN PO CONSTIPATION; Start 06/29/16 at 13:30 Finasteride (Proscar) 5 mg DAILY PO Last administered on 07/01/16 08:36; Admin Dose 5 MG; Start 06/30/16 at 09:00 Terazosin HCl 10 mg 10 mg HS PO Last administered on 07/01/16 20:33; Admin Dose 10 MG; Start 06/29/16 at 21:00 Lactated Ringer's (Lr) 1,000 ml @ 125 mls/hr Q8H IV Last administered on 06:01; Admin Dose 125 MLS/HR; Start 06/29/16 at 13:19 Celecoxib (Celebrex) 200 mg DAILY PO Last administered on 07/01/16 08:36; Admin Dose 200 MG; Start 06/30/16 at 09:00 Tramadol HCl (Ultram) 50 mg Q6 PO Last administered on 07/02/16 06:45; Admin Dose 50 MG; Start 06/29/16 at 18:00; Stop 07/02/16 at 17:59 Oxycodone HCl (Roxicodone) 5 mg Q4H PRN PO PAIN LEVEL 1-3; Start 06/29/16 at 13: 30 Oxycodone HCl (Roxicodone) 10 mg Q4H PRN PO PAIN LEVEL 4-7 Last administered on 07/02/16 04:37; Admin Dose 10 MG; Start 06/29/16 at 13:30 Hydromorphone HCl (Dilaudid) 1 mg Q3H PRN IV PAIN LEVEL 8-10 Last administered on 06/30/16 17:05; Admin Dose 1 MG; Start 06/29/16 at 13:30 Ondansetron HCl (Zofran Inj) 4 mg Q6H PRN IV NAUSEA AND/OR VOMITING; Start 06/29 at 13:30 Bisacodyl (Dulcolax Supp) 10 mg Q12H PRN [place] CONSTIPATION; Start 06/29/16 at 13: 30 Magnesium Hydroxide (Milk Of Mag) 30 ml BID PRN PO CONSTIPATION Last administered on 07/01/16 13:36; Admin Dose 30 ML; Start 06/29/16 at 13:30 Sodium Biphosphate/ Sodium Phosphate (Fleet Enema) 133 ml DAILY PRN ID CONSTIPATION; Start 06/29/16 at 13:30 Docusate Sodium (Colace) 100 mg BID PO Last administered on 07/01/16 08:36; Admin Dose 100 MG; Start 06/29/16 at 21:00 Diphenhydramine HCl (Benadryl) 25 mg Q6H PRN PO PRURITUS Last administered on 20:38; Admin Dose 25 MG; Start 06/29/16 at 13:30 Aspirin (Ecotrin) 325 mg BID PO Last administered on 07/01/16 20:31; Admin Dose 325 MG; Start 06/30/16 at 09:00 Pregabalin (Lyrica) 50 mg BID PO Last administered on 07/01/16 20:32; Admin Dose 50 MG; Start 06/29/16 at 21:00 Pantoprazole (Protonix Tab) 40 mg BID@,18 PO Last administered on 07/02/16 06:46; Admin Dose 40 MG; Start 06/29/16 at 18:00 Lorazepam (Ativan) 1 mg BID PRN PO ANXIETY Last administered on 07/01/16 20:39 ; Admin Dose 1 MG; Start 06/29/16 at 21:00 Lisinopril (Zestril) 20 mg DAILY PO Last administered on 07/01/16 08:38; Admin Dose 20 MG; Start 06/29/16 at 16:29 Phenol (Cepastat Lozenge) 1 lozenge Q1H PRN MT SORE THROAT Last administered on 07/01/16 20:43; Admin Dose 5 LOZENGE; Start 06/29/16 at 22:00 Calcium Carbonate (Tums) 1,000 mg QID PRN PO DISTENSION/GAS/BLOATING Last administered on 06/30/16 08:55; Admin Dose 1,000 MG; Start 06/30/16 at 08:30 Clonidine (Catapres) 0.1 mg TID PO Last administered on 07/01/16 12:31; Admin Dose 0.1 MG; Start 06/30/16 at 09:00 MARYBEL GARDNER MD Jul 02, 2016 08:26
--- NOTE | 2016-07-02 08:46 | PN ---
Date/Time of Note Date/Time of Note DATE: 07/02/16 TIME: 08:43 Assessment/Plan Lines/Catheters IV Catheter Type (from Nrsg): Saline Lock Bell in Place (from Nrsg): Yes Assessment/Plan Assessment/Plan Stable POD #3, s/p right anterior ANICETO -pain meds as needed -OOB with PT -discussed at length to avoid alcohol use while taking narcotic pain medication -dressing changed -d/c home today -follow up in the office in 1 week Subjective 24 Hr Interval Summary Doing well. No acute overnight events. Progressing with PT. Pain better controlled. VSS, afebrile. Will plan to go home today. Exam/Review of Systems Vital Signs Vitals Vital Signs Date Time Temp Pulse Resp B/P Pulse Ox O2 Delivery O2 Flow Rate FiO2 07/02/16 07:00 99.2 76 20 152/70 95 07/01/16 12:32 Room Air Intake and Output 07/01/16 07/01/16 07/02/16 15:00 23:00 07:00 Intake Total 2260 ml 1050 ml Output Total 500 ml 850 ml Balance 1760 ml 200 ml Exam Free Text/Dictation Dressing dry Incision clean, dry, and intact without redness or drainage 5/5 Quadriceps, Tibialis Anterior, EHL, Gastroc, Soleus, Peroneals Normal sensation Palpable DT/PT, CR <2 sec No distal edema Results Result Diagram: 07/02/16 0708 07/02/16 07 CIERA VITALE PA-C Jul 02, 2016 08:46
[2016-07-02] MEDS: ASPIRIN (EC) 325 MG TAB PO SCH (08:53)
[2016-07-02] MEDS: PREGABALIN 25 MG CAP PO SCH (08:54)
[2016-07-02] MEDS: LISINOPRIL 20 MG TAB PO SCH (08:54)
[2016-07-02] MEDS: CELECOXIB 200 MG CAP PO SCH (08:54)
[2016-07-02] MEDS: DOCUSATE SODIUM 100 MG CAP PO SCH (08:54)
[2016-07-02] MEDS: FINASTERIDE 5 MG TAB PO SCH (08:54)
--- NOTE | 2016-07-02 14:19 | DS ---
DATE OF ADMISSION: 06/29/2016 DATE OF DISCHARGE: 07/02/2016 CONDITION ON DISCHARGE: Stable. ADMITTING DIAGNOSIS: Right hip osteoarthritis. DISCHARGE DIAGNOSIS: Status post right anterior total hip arthroplasty. PROCEDURE PERFORMED: Right anterior total hip arthroplasty. HOSPITAL COURSE: This is a 71-year-old male who was seen in clinic initially complaining of right hip pain. He had previously undergone joint replacement of his left hip as well as bilateral knees, and x-rays demonstrated advanced osteoarthritis of the right hip. On 06/29/2016, the patient was admitted and taken to the operating room where he underwent a right anterior total hip arthroplasty. There were no intraoperative complications. The patient tolerated the procedure well. He was taken to the recovery room in stable condition. Pain was well controlled with oral pain medication. He was started on aspirin and SCDs for DVT prophylaxis. He remained hemodynamically stable and neurovascularly intact throughout his hospital stay. He began physical therapy on postoperative day 1 and was deemed stable for discharge on postoperative day 3. Prior to discharge, the incision was inspected and noted to be clean, dry and intact. Dressing changes were done prior to patient going home. LABORATORY ANALYSIS: Hemoglobin 9.7, hematocrit 29.5, chemistry panel was within normal limits. DISCHARGE MEDICATIONS: 1. [place] 5/325 mg. 2. Tramadol 50 mg. 3. Aspirin 325 mg. 3. Additionally, the patient is to resume all his normal home medications. DISCHARGE INSTRUCTIONS: The patient will be discharged home in stable condition. He is to resume a normal diet. Activity includes weightbearing as tolerated on the right lower extremity. He will be in physical therapy with Home Health. He will be discharged home with the medications noted above. The patient has a history of alcohol misuse and was encouraged to avoid drinking alcohol or taking narcotic pain medication. He is to call the office or go to the emergency room for any concerns, including increased redness, swelling, drainage, fever or any concern regarding the operation or site of incision. FOLLOWUP: The patient is to follow up in the office on 07/09/2016. Dictated By: CIERA OLGUIN for EDITH CHOWDHURY/NTS Conf#: [id number] DID#: [id number] CC: EDITH LARIOS MD;*EndCC* MTDD
== END 2016-07-02 13:20 | disposition home health service (06) | DRG 470 ==
LOC: REC 07:37 → MS1 14:07
PROVIDERS: ADMIT Orthopaedic Surgery; ATTEND Orthopaedic Surgery
PROC: 0SR904A Replacement of Right Hip Joint with Ceramic on Polyethylene Synthetic Substitute, Uncemented, Open Approach (ICD-10-PCS; principal; 2016-06-29 10:00)
DX: M16.11 Unilateral primary osteoarthritis, right hip (principal); I10 Essential (primary) hypertension; I25.10 Atherosclerotic heart disease of native coronary artery without angina pectoris; N40.0 Benign prostatic hyperplasia without lower urinary tract symptoms; Z96.653 Presence of artificial knee joint, bilateral; K21.9 Gastro-esophageal reflux disease without esophagitis; F41.9 Anxiety disorder, unspecified; M54.16 Radiculopathy, lumbar region; F17.210 Nicotine dependence, cigarettes, uncomplicated; Z79.82 Long term (current) use of aspirin
CPT/HCPCS: 72170; 73500; 73530; 80048; 81001; 81003; 83735; 84100; 85014; 85018; 86850; 86900; 86901; 86920; 87081; 87086; 88304; 88311; 97110; 97116; 97162; 97166; 97530; Z7610; C1776; C9290; J0171; J0690; J0697; J0735; J1100; J1170; J1885; J2001; J2250; J2274; J2405; J2710; J3010; J3370; J3475; J7120

== ENCOUNTER → 2016-07-09 | Outpatient (CLI) | payer MEDICARE, BC ==
[~2016-07-09] MED LIST changes: +ASPI325T32 PO; +BISA5TAB6 PO; -BISOPROLOL PO; +HYDR-906 PO; -INDO50SU RC; +LISI1TAB8 PO; -LISI20TA11 PO; -PERCOCET; +TERA10CA42 PO; -TERA2CAP3 PO; +TRAM50TA2 PO
--- NOTE | 2016-07-09 10:07 | HKNOTE ---
DATE OF SERVICE: 07/09/2016 INTERVAL HISTORY: The patient presents today for his first postoperative evaluation on his right hip. He is 10 days status post right anterior total hip arthroplasty. He is doing excellent overall. He is ambulating with ease and does not need a cane or other assistive device. He denies any pain and states he stopped all of his pain medication. He denies any fevers or chills, denies any swelling. He is very happy and satisfied with the surgery thus far. He presents today for his first postoperative evaluation. PHYSICAL EXAMINATION: On exam today, he is alert and oriented x4, and in no acute distress. He is ambulating without any assistive devices. Examining the incision, demonstrates it to be clean, dry and intact. There is no erythema or warmth. There is no swelling. He has no pain with gentle internal and external rotation of the hip. Compartments are soft. Homans sign is negative. He is neurovascularly intact distally. IMAGING: X-rays of the right hip were obtained today and reviewed by me. They demonstrate good anatomic alignment of the prosthesis, with no evidence of fracture or dislocation identified. ASSESSMENT: Ten days status post right anterior total hip arthroplasty, doing well. PLAN: The pito were removed today and Steri-Strips were applied. The patient understands that he is to continue taking aspirin twice daily for 6 weeks for DVT prophylaxis. The patient has already begun driving and is able to resume as long as he is not consuming any alcoholic beverages or narcotic pain medication. This was discussed with the patient today, who demonstrates understanding. He will continue with home health, physical therapy if needed. We will see him back in 4 weeks for a repeat evaluation. Dictated By: CIERA OLGUIN for EDITH CHOWDHURY/ES Conf#: [id number] DID#: [id number] GINNY
--- NOTE | 2016-07-09 11:00 | RADRPT ---
PROCEDURE: XR pelvis/right hip. CLINICAL INDICATION: Hip pain TECHNIQUE: AP pelvis/lateral right hip view available for review. COMPARISON: 06/29/2016 FINDINGS: There are bilateral total hip replacements. There is normal mineralization, architecture and alignment. There is no evidence of loosening of th e prosthesis. No fractures, dislocation or osseous lesions are identified. The joints are unremark able. There are normal soft tissues. Skin pito lateral to the right hip. IMPRESSION: Bilateral total hip replacements. Otherwise unremarkable examination. RPTAT: HGDB .Ezekiel Ochoa MD, MD Date Time Electronically viewed and signed by .Ezekiel Ochoa MD, MD on 07/09/2016 10:59 .B/
== END | disposition home or self-care (01) ==
LOC: HKI 09:10 → MERGE 09:30 → UNMERGE 09:30
PROVIDERS: ATTEND Orthopaedic Surgery
DX: Z47.1 Aftercare following joint replacement surgery (principal); Z96.641 Presence of right artificial hip joint
CPT/HCPCS: 73502

== ENCOUNTER → 2016-08-20 | Outpatient (CLI) | payer MEDICARE, BC ==
--- NOTE | 2016-08-20 19:36 | RADRPT ---
PROCEDURE: XR LEFT HIP. CLINICAL INDICATION: Postop. TECHNIQUE: 3 views of the left hip were performed. COMPARISON: 07/09/2016 FINDINGS: There has been no significant change. Patient is status post total hip replacement on the left and bipolar hemiarthroplasty on the right. No evidence for hardware subluxation. No evidence for hardw are fracture. No evidence for osseous fracture. There is a lucency about the acetabular component on the right side which may be a preexisting geode from arthrosis. IMPRESSION: 1. No change in right hemiarthroplasty. 2. No evidence for hardware migration or fracture. RPTAT: XX .Tanner Medrano MD, MD Date Time Electronically viewed and signed by .Tanner Medrano MD, on 08/20/2016 19:36 .T/
== END | disposition home or self-care (01) ==
LOC: HKI 09:03
PROVIDERS: ATTEND Orthopaedic Surgery
DX: Z47.1 Aftercare following joint replacement surgery (principal); M16.11 Unilateral primary osteoarthritis, right hip; Z96.641 Presence of right artificial hip joint; I10 Essential (primary) hypertension
CPT/HCPCS: 73502

== ENCOUNTER 2017-04-13 07:40 | Emergency (ER) | payer MEDICARE, BC ==
[~2017-04-13] VITALS: Ht 182.9 cm; Wt 112.5 kg
[2017-04-13 07:43] VITALS: Ht 182.9 cm; Wt 112.5 kg
--- NOTE | 2017-04-13 08:38 | ERD ---
ER Documentation Chief Complaint Chief Complaint feels something stuck in throat HPI Patient is a 71-year-old male with a history of hypertension who presents ED for concerns of a foreign body sensation in his throat. Patient states he ate nava chops for dinner last night. Patient reports eating dinner at 8 PM. Patient states since that time he has had a foreign body sensation in his throat. Patient denies any gagging, choking, coughing, nausea, vomiting, chest pain, difficulty breathing, stridor or loss of consciousness. Patient denies possibility of bone ingestion. Patient states that he is unable to swallow water or eat after this. Patient admits to history of needing endoscopy to remove food impaction many years ago. Patient denies smoking. ROS All systems reviewed and are negative except as per history of present illness. Medications Home Meds Active Scripts Hydrocodone/Acetaminophen ([place] 5-325 Tablet) 1 Each Tablet, 1 EACH PO Q6 Y for PAIN, #60 TAB Prov:CIERA VITALE PA-C 07/02/16 Tramadol HCl (Tramadol HCl) 50 Mg Tablet, 50 MG PO Q6 for 30 Days, #60 TAB Prov:CIERA VITALE PA-C 07/02/16 Aspirin (Aspir-Thalia) 325 Mg Tablet.dr, 325 MG PO BID for 42 Days, #84 Prov:CIERA VITALE PA-C 07/02/16 Reported Medications Lisinopril/Hydrochlorothiazide (Lisinopril-Hctz 20-25 mg Tab) 1 Each Tablet, 1 EACH PO DAILY, TAB 06/29/16 Terazosin Hcl* (Terazosin Hcl*) 10 Mg Capsule, 10 MG PO HS, CAP 06/29/16 Bisacodyl* (Bisacodyl*) 5 Mg Tablet., 10 MG PO DAILY Y for CONSTIPATION, TAB 06/29/16 Pantoprazole* (Pantoprazole*) 40 Mg Tablet.dr, 40 MG PO DAILY, TAB 06/22/16 Finasteride* (Finasteride*) 5 Mg Tablet, 5 MG PO DAILY, TAB 06/22/16 Atorvastatin Calcium (Atorvastatin Calcium) 20 Mg Tablet, 20 MG PO QHS, #30 TAB 06/22/16 Lorazepam* (Ativan*) 1 Mg Tablet, 1 MG PO TID Y 02/29/12 Allergies Allergies: Coded Allergies: No Known Drug Allergy (Verified Allergy, Unknown, 04/13/17) PMhx/Soc History of Surgery: Yes (OZ KNEES, LEFT HIP,BACK SURGERY,HERNIA) Anesthesia Reaction: No Hx Neurological Disorder: No Hx Respiratory Disorders: No Hx Cardiac Disorders: Yes (HTN) Hx Psychiatric Problems: No Hx Miscellaneous Medical Probl: Yes (HTN, BPH, anxiety, B knee, L THR, L/S radiculopathy GERD) Hx Alcohol Use: No Hx Substance Use: No Hx Tobacco Use: No Smoking Status: Never smoker Physical Exam Vitals Vital Signs Date Time Temp Pulse Resp B/P Pulse Ox O2 Delivery O2 Flow Rate FiO2 04/13/17 12:51 98.1 76 18 152/71 99 Room Air 04/13/17 07:43 99.2 82 18 160/78 99 Physical Exam GENERAL: Well-developed, well-nourished male. Appears in no acute distress. Speaking in full sentences. HEAD: Normocephalic, atraumatic. EYES: Pupils are equally reactive bilaterally. EOMs grossly intact. No conjunctival erythema. ENT: Moist mucous membranes. No uvula deviation. No kissing tonsils. Oropharynx is open. No drooling. No gagging. NECK: Supple. No meningismus. Normal range of motion of the neck. LUNG: Clear to auscultation bilaterally. No rhonchi, wheezing, rales or coarse breath sounds. No nasal flaring. No tripoding. No abdominal retractions. HEART: Regular rate and rhythm. No murmurs, rubs or gallops. EXTREMITIES: Equal pulses bilaterally. No peripheral clubbing, cyanosis or edema. No unilateral leg swelling. NEUROLOGIC: Alert and oriented. Moving all four extremities without any difficulty. Normal speech. Steady gait. SKIN: Normal color. Warm and dry. No rashes or lesions. Result Diagram: 04/13/17 1020 04/13/17 1020 Results 24 hrs Laboratory Tests Test 04/13/17 10:20 White Blood Count 10.310^3/ul Red Blood Count 4.3310^6/ul Hemoglobin 13.4g/dl Hematocrit 39.6% Mean Corpuscular Volume 91.5fl Mean Corpuscular Hemoglobin 30.9pg Mean Corpuscular Hemoglobin Concent 33.8g/dl Red Cell Distribution Width 12.5% Platelet Count 88792^3/UL Mean Platelet Volume 10.2fl Neutrophils % 83.3% Lymphocytes % 9.6% Monocytes % 6.2% Eosinophils % 0.1% Basophils % 0.5% Nucleated Red Blood Cells % 0.0/100WBC Neutrophils # 8.610^3/ul Lymphocytes # 1.010^3/ul Monocytes # 0.610^3/ul Eosinophils # 0.010^3/ul Basophils # 0.110^3/ul Nucleated Red Blood Cells # 0.010^3/ul Sodium Level 143mmol/L Potassium Level 3.9mmol/L Chloride Level 104mmol/L Carbon Dioxide Level 25mmol/L Anion Gap 18 Blood Urea Nitrogen 10mg/dl Creatinine 0.84mg/dl Glucose Level 130mg/dl Calcium Level 9.8mg/dl Current Medications Medications (Trade) Dose Ordered Sig/Roseanna Route PRN Reason Start Time Stop Time Status Last Admin Dose Admin IV Flush 10 ml 10 ml STK-MED ONCE .ROUTE 04/13/17 11:19 04/13/17 11:20 DC 04/13/17 11:30 Sodium Chloride (NS) 100 ml @ ud STK-MED ONCE .ROUTE 04/13/17 11:19 04/13/17 11:20 DC 04/13/17 11:31 Iohexol (Omnipaque 300mg/ ml) 150 ml STK-MED ONCE .ROUTE 04/13/17 11:19 04/13/17 11:20 DC 04/13/17 11:32 Miscellaneous Medication (Gi Cocktail (2)) 40 ml ONCE ONCE PO 04/13/17 12:00 04/13/17 12:01 DC 04/13/17 12:27 Procedures/MDM ED COURSE: The patient was stable throughout ED course. I kept the patient and/or family informed of laboratory and diagnostic imaging results throughout the ED course. DIAGNOSTIC IMAGING: Read by radiologist. Patient: LILY CATHERINE : 1945 Age: 71 Sex: M MR #: [id number] DOS: 04/13/17 0816 Ordering MD: ADRI ANNA PA-C Location: [facility] Room/Bed: PROCEDURE: Neck soft tissues. CLINICAL INDICATION: 5 body sensation.. TECHNIQUE: AP and lateral views of the neck soft tissues. COMPARISON: None. FINDINGS: The prevertebral soft tissues are normal. The nasal pharyngeal, oral pharyngeal , and hypopharyngeal airways are patent. Normal appearance of the visualized trachea. No radiopaque foreign bodies are identified. Degenerative disc space narrowing at C3-C4 and C5-C6 with degenerative endplate spurring and enthesopathy. There are no abnormal calcifications. IMPRESSION: 1. Normal soft tissue neck. No radiopaque foreign body. RPTAT:AAJJ Physician Brittnee Date Time Electronically viewed and signed by Physician Brittnee on 04/13/2017 10:01 SHAGUFTA/ CC: ADRI ANNA PA-C DIAGNOSTIC IMAGING REPORT Patient: LILY CATHERINE : 1945 Age: 71 Sex: M MR #: [id number] DOS: 04/13/17 0818 Ordering MD: ADRI ANNA PA-C Location: [facility] Room/Bed: PROCEDURE: XR Chest. CLINICAL INDICATION: Shortness of breath TECHNIQUE: PA and lateral of the chest was obtained COMPARISON: No priors for comparison FINDINGS: The trachea is midline. The cardiac silhouette and pulmonary vascularity are within normal limits. The lungs are clear. The costophrenic angles are sharp. IMPRESSION: 1. No evidence of acute cardiopulmonary disease. RPTAT: AAPP Physician Letty Date Time Electronically viewed and signed by Physician Letty on 04/13/2017 09:51 JL/ CC: ADRI ANNA PA-C Patient: LILY CATHERINE : 1945 Age: 71 Sex: M MR #: [id number] DOS: 04/13/17 1016 Ordering MD: ADRI ANNA PA-C Location: [facility] Room/Bed: PROCEDURE: CT soft tissue neck with contrast CLINICAL INDICATION: Foreign body sensation/food impaction TECHNIQUE: A CT of the soft tissues of the neck with contrast was performed on a multidetector CT scanner, with multiplanar reformats. 85 cc Omnipaque-300 intravenous contrast were administered. One or more of the following dose reduction techniques were used: Automated exposure control, adjustment in mA and / or kV according to patient size, use of iterative reconstructive technique. CTDI vol = 10 mGy and DLP = 309 mGy-cm. DICOM images are available. COMPARISON: Soft tissue neck radiographs 04/13/2017 FINDINGS: No foreign body, mass lesion, enlarged lymph node meeting size criteria, soft tissue swelling/inflammatory changes or focal fluid collection are identified throughout the soft tissues of the neck. The pharynx, and larynx are unremarkable. The thyroid gland and rest of visceral space structures are unremarkable. The parapharyngeal and retropharyngeal spaces are clear. Carotid atherosclerotic calcifications are noted. The parotid and submandibular glands are unremarkable. The imaged tile designer spaces are symmetric. The imaged skull base appears intact. The perivertebral and posterior cervical spaces are unremarkable. Imaged orbital structures are intact. The oral cavity is partially obscured by artifacts from dental work, without abnormality seen. Mild left sphenoid sinus mucosal thickening is seen. Cervical spondylosis is noted. IMPRESSION: No foreign body, mass/lymphadenopathy or acute abnormality identified throughout the soft tissues of the neck. RPTAT: VV .Camron Beckham MD, MD Date Time Electronically viewed and signed by .Camron Beckham MD, MD on 04/13/2017 11:55 .O/ CC: ADRI ANNA PA-C MEDICATIONS GIVEN: GI cocktail Patient tolerated medication well with no adverse reactions. MEDICAL DECISION MAKING: Patient is a 71-year-old male who presents to the ED for concerns of a foreign body sensation in his throat which started last night. Patient states that he ate nava chops for dinner. Patient denies ingestion of any bones. Patient denies any drooling, gagging, choking or vomiting. Patient is speaking in full sentences. Vital signs were reviewed. Patient is afebrile. Patient was not hypoxic. Patient was hemodynamically stable. Initially soft tissue x-ray of the neck as well as chest x-ray was obtained. Both studies were unremarkable. Patient was given water to drink however he stated he was unable to tolerate it. Patient was noted to have a slight increase in sputum production. I discussed case with my supervising physician Dr. Torres, who then advised me to order a CT neck with contrast. Blood work was obtained prior to ordering CT study. CBC showed no evidence of systemic infection or severe anemia. BMP showed no evidence of electrolyte abnormalities, severe acidosis, alkalosis, renal failure. CT of the neck showed no foreign body, mass, lymphadenopathy or acute abnormality identified throughout the soft tissues of the neck. Patient continued to report sensation in his throat. Patient was given a GI cocktail. After drinking GI cocktail patient was able to tolerate a full cup of water. Patient did not have any episodes of gagging, choking or vomiting. Patient reports significant improvement in symptoms after receiving GI cocktail. At this time the patient's presentation is most consistent with globulus sensation. It is possible that patient may have esophageal abrasion which is contributing to symptoms he has given that he did report significant improvement after receiving a GI cocktail. I explained to the patient he should follow-up with GI specialist on an outpatient basis for an endoscopy. Unable to rule out any esophageal pathologies at this time. Low suspicion for retained foreign body, airway obstruction, esophageal perforation, acute respiratory distress or acute respiratory compromise. Patient was speaking in full sentences throughout the ED course. Patient was also examined by Dr. Torres who agreed patient was stable for outpatient management. DISCHARGE: At this time, patient is stable for discharge and outpatient management. Patient was given a copy of all imaging studies and blood work obtained today. Patient advised to follow-up with GI specialist. Referral information provided. I have instructed the patient to follow-up with his/her primary care physician in 1-2 days. I have discussed with the patient the possibility of needing to see a specialist for further workup and imaging studies if symptoms persist. I have instructed the patient to promptly return to the ER for any new or worsening symptoms including increased pain, fever, nausea, vomiting, weakness or LOC. The patient and/or family expressed understanding of and agreement with this plan. All questions were answered. Home care instructions were provided. Patients blood pressure was elevated (>120/80) but appears stable without evidence of hypertensive emergency, hypertensive urgency or end-organ failure. I had discussion with the patient about the risks of hypertension. I have advised the patient to follow up with his/her primary care physician for outpatient monitoring and treatment for hypertension in 2-3 days. I have instructed the patient to return to the ER for any new or worsening symptoms including chest pain, shortness of breath, headache, blurred vision, confusion, nausea, vomiting or LOC. Disclaimer: Inadvertent spelling and grammatical errors are likely due to EHR/ dictation software use and do not reflect on the overall quality of patient care. Also, please note that the electronic time recorded on this note does not necessarily reflect the actual time of the patient encounter. Departure Diagnosis: Primary Impression: Globus sensation Patient Instructions: Treating Dysphagia, Understanding Dysphagia Referrals: POWER MORROW MD,JASMINA VAUGHAN,MARTHA WHIPPLE,LUZ MARIA MEDINA,MINDY SANCHEZ,ASHLEY KELLY MD, MD,JUSTYNA HADDAD,DAR MASSEY,THIERNO Menon Additional Instructions: Patient was advised to follow-up with a GI specialist on an outpatient basis. Unable to rule out any esophageal pathology at this time. Patient advised to follow-up with his primary care physician in the next 1 to 2 days or return here for any new or worsening symptoms. ADRI ANNA PA-C Apr 13, 2017 08:38
--- NOTE | 2017-04-13 09:52 | RADRPT ---
PROCEDURE: XR Chest. CLINICAL INDICATION: Shortness of breath TECHNIQUE: PA and lateral of the chest was obtained COMPARISON: No priors for comparison FINDINGS: The trachea is midline. The cardiac silhouette and pulmonary vascularity are within normal limits. T he lungs are clear. The costophrenic angles are sharp. IMPRESSION: 1. No evidence of acute cardiopulmonary disease. RPTAT: AAPP Physician Letty Date Time Electronically viewed and signed by Rober Ibarra Physician on 04/13/2017 09:51 JEAN/
--- NOTE | 2017-04-13 10:01 | RADRPT ---
PROCEDURE: Neck soft tissues. CLINICAL INDICATION: 5 body sensation.. TECHNIQUE: AP and lateral views of the neck soft tissues. COMPARISON: None. FINDINGS: The prevertebral soft tissues are normal. The nasal pharyngeal, oral pharyngeal, and hypopharyngeal airways are patent. Normal appearance of the visualized trachea. No radiopaque foreign bodies are id entified. Degenerative disc space narrowing at C3-C4 and C5-C6 with degenerative endplate spurring and entheso phuong. There are no abnormal calcifications. IMPRESSION: 1. Normal soft tissue neck. No radiopaque foreign body. RPTAT:AAJJ Dang Goins Physician Date Time Electronically viewed and signed by Physician Brittnee on 04/13/2017 10:01 SHAGUFTA/
[2017-04-13 10:43] LABS: BASOPHIL # 0.1 10^3/ul (0.0-0.1); BASOPHILS % 0.5 % (0.0-2.0); EOSINOPHILS % 0.1 % (0.0-7.0); HEMATOCRIT 39.6 % (42.0-52.0); HEMOGLOBIN 13.4 g/dl (14.0-18.0); LYMPHOCYTES % 9.6 % (15.0-51.0); MEAN CORPUSCULAR HEMOGLOBIN 30.9 pg (29.0-33.0); MEAN CORPUSCULAR HGB CONC 33.8 g/dl (32.0-37.0); MEAN CORPUSCULAR VOLUME 91.5 fl (82.0-101.0); MEAN PLATELET VOLUME 10.2 fl (7.4-10.4); MONOCYTE # 0.6 10^3/ul (0.3-0.9); MONOCYTES % 6.2 % (0.0-11.0); NEUTROPHIL # 8.6 10^3/ul (1.6-7.5); NEUTROPHILS % 83.3 % (39.0-77.0); PLATELET COUNT 251 10^3/UL (140-415); RED BLOOD COUNT 4.33 10^6/ul (4.70-6.10); RED CELL DISTRIBUTION WIDTH 12.5 % (11.5-14.5); WHITE BLOOD COUNT 10.3 10^3/ul (4.8-10.8)
[2017-04-13 10:56] LABS: CALCIUM 9.8 mg/dl (8.4-10.2); CREATININE 0.84 mg/dl (0.61-1.24); POTASSIUM 3.9 mmol/L (3.5-5.1)
[2017-04-13] MEDS ORDERED: IOHEXOL 300MG/ML 150 ML BTL ONE (11:19)
[2017-04-13] MEDS ORDERED: SOD CHLORIDE 0.9% 100 ML ONE (11:19)
--- NOTE | 2017-04-13 11:55 | RADRPT ---
PROCEDURE: CT soft tissue neck with contrast CLINICAL INDICATION: Foreign body sensation/food impaction TECHNIQUE: A CT of the soft tissues of the neck with contrast was performed on a multidetector CT s [employer], with multiplanar reformats. 85 cc Omnipaque-300 intravenous contrast were administered. O ne or more of the following dose reduction techniques were used: Automated exposure control, adjustm ent in mA and / or kV according to patient size, use of iterative reconstructive technique. CTDI vo l = 10 mGy and DLP = 309 mGy-cm. DICOM images are available. COMPARISON: Soft tissue neck radiographs 04/13/2017 FINDINGS: No foreign body, mass lesion, enlarged lymph node meeting size criteria, soft tissue swelling/inflam matory changes or focal fluid collection are identified throughout the soft tissues of the neck. The pharynx, and larynx are unremarkable. The thyroid gland and rest of visceral space structures are unremarkable. The parapharyngeal and retropharyngeal spaces are clear. Carotid atherosclerotic lydia cifications are noted. The parotid and submandibular glands are unremarkable. The imaged masticato r spaces are symmetric. The imaged skull base appears intact. The perivertebral and posterior cerv ical spaces are unremarkable. Imaged orbital structures are intact. The oral cavity is partially o bscured by artifacts from dental work, without abnormality seen. Mild left sphenoid sinus mucosal t hickening is seen. Cervical spondylosis is noted. IMPRESSION: No foreign body, mass/lymphadenopathy or acute abnormality identified throughout the soft tissues of the neck. RPTAT: VV .Camron Beckham MD, Date Time Electronically viewed and signed by .Camron Beckham MD, MD on 04/13/2017 11:55 .O/
[2017-04-13] MEDS ORDERED: LIDOCAINE/MYLANTA 40 ML BTL PO ONE (12:00)
[2017-04-13 12:51] VITALS: BP 152/71; PULSE 76; RESP 18; TEMP 98.1
== END 2017-04-13 12:52 | disposition home or self-care (01) ==
LOC: FTE 07:40
DX: F45.8 Other somatoform disorders (principal); I10 Essential (primary) hypertension; Z79.82 Long term (current) use of aspirin
CPT/HCPCS: 70360; 70491; 71020; 80048; 85025; 99285; Q9967